=== PATIENT | male | born 1995 | race Two or more races ===

== ENCOUNTER 2016-08-08 19:36 | Emergency (ER) | payer BC ==
[~2016-08-08] VITALS: Ht 185.4 cm; Wt 102.1 kg
[2016-08-08] MEDS ORDERED: IBUPROFEN 600 MG TABLET PO ONE ×2 (20:20→20:30)
[2016-08-08] MEDS ORDERED: IV NS 0.9% 1,000 ML ONE (20:20)
[2016-08-08] MEDS ORDERED: IV SET PRIMARY 1 EA INFUS.SET MC ONE (20:20)
[2016-08-08] MEDS ORDERED: ACETAMINOPHEN ES 500 MG TABLET ONE (20:20)
[2016-08-08] MEDS ORDERED: ONDANSETRON HCL/PF 4 MG/2 ML VIAL ONE (20:20)
[2016-08-08 20:22] LABS: BASOPHILS # (AUTO) 0.1 /CMM (0.0-0.2); BASOPHILS % (AUTO) 2.2 % (0.0-2.0); DIFF TOTAL % 100 %; EOSINOPHILS % (AUTO) 0.6 % (0.0-6.0); HEMATOCRIT 48 % (39-51); HEMOGLOBIN 15.6 g/dL (13.5-17.5); LYMPHOCYTES # (AUTO) 1.2 /CMM (0.8-4.8); LYMPHOCYTES % (AUTO) 21.6 % (20.0-44.0); MEAN CORPUSCULAR HEMOGLOBIN 31 PG (26.0-33.0); MEAN CORPUSCULAR HGB CONC 33 g/dl (31.0-36.0); MEAN CORPUSCULAR VOLUME 93 fL (80-96); MONOCYTES # (AUTO) 0.4 /CMM (0.1-1.30); MONOCYTES % (AUTO) 6.9 % (2.0-12.0); NEUTROPHILS % (AUTO) 68.7 % (43.0-81.0); PLATELET COUNT (AUTO) 236 /CMM (150-450); RED BLOOD CELL COUNT(AUTO) 5.11 MIL/uL (4.5-6.0); WHITE BLOOD COUNT (AUTO) 5.7 K/uL (4.3-11.0)
[2016-08-08 20:29] LABS: CALCIUM, SERUM 9.4 mg/dL (8.5-10.1); CREATININE 1.4 mg/dL (0.6-1.3); POTASSIUM 3.7 mmol/L (3.5-5.1)
[2016-08-08] MEDS ORDERED: IV NS 0.9% 1,000 ML BAG IV ONE (20:30)
[2016-08-08] MEDS ORDERED: ONDANSETRON HCL/PF 4 MG/2 ML VIAL IVP ONE (20:30)
[2016-08-08] MEDS ORDERED: ACETAMINOPHEN ES 500 MG TABLET PO ONE (20:30)
[2016-08-08 21:49] VITALS: BP 136/87
== END 2016-08-08 21:50 | disposition home or self-care (01) ==
LOC: ER 19:43
DX: B34.9 Viral infection, unspecified (principal)
CPT/HCPCS: 36415; 80048-TC; 85025-TC; A4606; J2405; J7030; Z7610